=== PATIENT | male | born 1960 | race African-American/Black ===

== ENCOUNTER 2016-06-25 08:49 | Emergency (ER) | payer OTHER ==
[~2016-06-25] VITALS: Ht 167.6 cm; Wt 59.0 kg
[2016-06-25] MEDS ORDERED: [UNRECOGNIZED DRUG - REMARK] (09:12)
[2016-06-25] MEDS ORDERED: IBUP-1510 PO (09:12)
[2016-06-25] MEDS ORDERED: CYCL5TAB PO (09:12)
[2016-06-25] MEDS ORDERED: IBUPROFEN 600MG TABLET PO ONE (12:00)
[2016-06-25 12:23] LABS: HEMATOCRIT. 39.4 % (42.0-52.0); HEMOGLOBIN. 13.5 g/dL (14.0-18.0); MEAN CORPUSCULAR HEMOGLOBIN 34.2 pg (28.0-32.0); MEAN CORPUSCULAR HGB CONC 34.2 g/dL (31.0-37.0); MEAN CORPUSCULAR VOLUME 99.9 fL (80.0-94.0); MEAN PLATELET VOLUME 7.1 fl (7.4-10.4); PLATELET 233 x1000/uL (130-400); RED BLOOD CELL COUNT 3.94 mill/uL (4.7-6.1); RED CELL DISTRIBUTION WIDTH 12.6 % (11.6-14.6); WHITE BLOOD COUNT 22.2 x1000/uL (4.5-11.0)
[2016-06-25 12:27] LABS: DIFFERENTIAL COMMENT 1
[2016-06-25 12:29] LABS: ALBUMIN 3.3 g/dL (3.4-5.0); ANION GAP 11; CALCIUM 9.1 mg/dL (8.5-10.1); CARBON DIOXIDE 30 mEq/L (21-32); CHLORIDE 99 mEq/L (98-107); INDEX HEMOLYSI 1 (1-3); INDEX ICTERIC 1 (1-4); INDEX LIPEMIC 1 (1-3); UREA NITROGEN BLOOD 16 mg/dL (7-21)
[2016-06-25 12:33] LABS: ALANINE AMINOTRANSFERASE 20 IU/L (13-61); eGFR > 60 mL/min (>60)
[2016-06-25 12:44] LABS: CLARITY URINE CLOUDY (CLEAR); COLOR URINE ORANGE (YELLOW); GLUCOSE URINE NEGATIVE (NEGATIVE); KETONES URINE TRACE (NEGATIVE); LEUKOCYTE ESTERASE URINE 2+ (NEGATIVE); NITRITE URINE POSITIVE (NEGATIVE); OCCULT BLOOD URINE 3+ (NEGATIVE); PH URINE 5.5 (4.5-8.0); PROTEIN URINE 1+ (NEGATIVE); SPECIFIC GRAVITY URINE 1.027 (1.005-1.030)
[2016-06-25 13:06] LABS: SQUAMOUS EPITHELIAL CELL URINE FEW /lpf (RARE/1+); WBC URINE TNTC /hpf (0-2)
[2016-06-25 13:07] LABS: BACTERIA URINE 4+
[2016-06-25 13:12] LABS: PLATELET ESTIMATE NORMAL
[2016-06-25 13:36] VITALS: BP 103/64
[2016-06-28 04:08] LABS: CHLAMYDIA TRACHOMATIS NAA Negative (Negative); NEISSERIA GONORRHOEAE NAA Negative (Negative)
== END 2016-06-25 14:25 | disposition home or self-care (01) ==
LOC: ER 12:55
DX: N45.1 Epididymitis (principal); Z79.1 Long term (current) use of non-steroidal anti-inflammatories (NSAID); Z79.899 Other long term (current) drug therapy
CPT/HCPCS: 36415; 76870; 80053; 81001; 85025; 87491; 87591; 93976; 99285

== ENCOUNTER 2018-04-17 15:36 | Emergency (ER) | payer OTHER ==
[~2018-04-17] VITALS: Ht 167.6 cm; Wt 60.0 kg
[~2018-04-17 15:36] MED LIST: CYCL5TAB PO; IBUP-2030 PO; [UNRECOGNIZED DRUG - REMARK]
[2018-04-17] MEDS ORDERED: CYCLOBENZAPRINE 10MG TABLET PO ONE (19:00)
[2018-04-17 19:35] VITALS: BP 136/68
== END 2018-04-17 19:35 | disposition home or self-care (01) ==
LOC: ER 16:47
DX: M54.41 Lumbago with sciatica, right side (principal); F17.200 Nicotine dependence, unspecified, uncomplicated
CPT/HCPCS: 99283

== ENCOUNTER 2018-06-18 23:29 | Emergency (ER) | payer OTHER ==
[~2018-06-18] VITALS: Ht 175.3 cm; Wt 72.0 kg
[2018-06-19] MEDS ORDERED: HYDROCODONE/ACETAMINOPHEN 5/325MG TABLET PO ONE (02:45)
[2018-06-19 04:32] VITALS: BP 128/64
== END 2018-06-19 04:37 | disposition home or self-care (01) ==
LOC: ER 23:29
DX: M25.512 Pain in left shoulder (principal); V49.09XA Driver injured in collision with other motor vehicles in nontraffic accident, initial encounter; Y93.89 Activity, other specified; Y92.89 Other specified places as the place of occurrence of the external cause; Y99.8 Other external cause status
CPT/HCPCS: 71045; 73000; 93005; 99283

== ENCOUNTER 2019-08-24 17:03 | Inpatient (IN) | payer OTHER ==
[~2019-08-24] VITALS: Ht 165.1 cm; Wt 53.3 kg
[2019-08-24] MEDS ORDERED: ONDANSETRON HCL 4MG/2ML INJ IV STA (18:19)
[2019-08-24] MEDS ORDERED: MORPHINE SULFATE 4 MG/ML CPJ (NOT FOR IM USE) IV STA (18:19)
[2019-08-24] MEDS ORDERED: ACETAMINOPHEN 325MG TABLET PO STA (18:19)
[2019-08-24] MEDS ORDERED: VANCOMYCIN 1 G PREMIX 200 ML IV ONE (18:30)
[2019-08-24] MEDS ORDERED: CLINDAMYCIN 600 MG in DEXTROSE 5% WATER 50 ML IV ONE (18:30)
[2019-08-24] MEDS ORDERED: PIPERACILLIN/TAZ 3.375G PREMIX 50 ML IV ONE (18:30)
[2019-08-24] MEDS ORDERED: SODIUM CHLORIDE 0.9% 1000ML BAG (SEPSIS BOLUS) IV ONE (18:30)
[2019-08-24] MEDS ORDERED: CLINDAMYCIN 600MG PREMIX 50 ML IV NR (19:00)
[2019-08-24 19:09] LABS: BASOPHILS % 0.4 % (0.0-2.0); HEMATOCRIT. 40.4 % (42.0-52.0); HEMOGLOBIN. 14.3 g/dL (14.0-18.0); LYMPHOCYTES % 8.6 % (20.0-50.0); MEAN CORPUSCULAR HEMOGLOBIN 37.3 pg (28.0-32.0); MEAN CORPUSCULAR VOLUME 105.4 fL (80.0-94.0); MEAN PLATELET VOLUME 7.7 fl (7.4-10.4); MONOCYTES % 12.2 % (2.0-8.0); NEUTROPHILS % 78.8 % (40.0-76.0); PLATELET 182 x1000/uL (130-400); RED BLOOD CELL COUNT 3.83 mill/uL (4.7-6.1); RED CELL DISTRIBUTION WIDTH 12.8 % (11.6-14.6)
[2019-08-24 19:15] LABS: CHLORIDE 99 mEq/L (98-107)
[2019-08-24 19:17] LABS: PROTHROMBIN TIME 10.3 sec (9.6-11.0)
[2019-08-24 19:57] LABS: CLARITY URINE CLEAR (CLEAR); COLOR URINE ORANGE (YELLOW); KETONES URINE TRACE (NEGATIVE); LEUKOCYTE ESTERASE URINE 2+ (NEGATIVE); NITRITE URINE POSITIVE (NEGATIVE); OCCULT BLOOD URINE NEGATIVE (NEGATIVE); PROTEIN URINE 1+ (NEGATIVE); SPECIFIC GRAVITY URINE 1.026 (1.005-1.030)
[2019-08-24] MEDS ORDERED: DIPHENHYDRAMINE 50MG/ML VIAL IV PRN (20:30)
[2019-08-24] MEDS ORDERED: ACETAMINOPHEN 325MG TABLET PO PRN (20:30)
[2019-08-24] MEDS ORDERED: GUAIFENESIN 200MG/10ML SUGAR FREE UDC PO PRN (20:30)
[2019-08-24] MEDS ORDERED: ONDANSETRON HCL 4MG/2ML INJ IV PRN (20:30)
[2019-08-24] MEDS ORDERED: CLONIDINE 0.1MG TABLET PO PRN (20:30)
[2019-08-24] MEDS ORDERED: MORPHINE SULFATE 2 MG/ML CPJ (NOT FOR IM USE) IV PRN (20:30)
[2019-08-24] MEDS ORDERED: IPRATROPIUM/ALBUTEROL 0.5-3(2.5)MG/3ML NEB NEB PRN (20:30)
[2019-08-24] MEDS ORDERED: LORAZEPAM 2MG/ML CPJ IV PRN (20:30)
[2019-08-24] MEDS ORDERED: HYDROCODONE/ACETAMINOPHEN 5/325MG TABLET PO PRN (20:30)
[2019-08-24] MEDS ORDERED: NA PHOS,M-B/NA PHOS,DI-BA ENEMA 118ML PR PRN (20:30)
[2019-08-24] MEDS ORDERED: MAGNESIUM/ALUMINUM HYDROXIDE/SIMETHICONE 30ML UDC PO PRN (20:30)
[2019-08-24] MEDS ORDERED: DOCUSATE SODIUM 100MG CAPSULE PO PRN (20:30)
[2019-08-24] MEDS ORDERED: IOHEXOL-300 100 ML BOTTLE ONE (23:18)
[2019-08-24 23:41] LABS: CHLORIDE 105 mEq/L (98-107)
[2019-08-24] MEDS: SODIUM CHLORIDE 0.45% 1,000 ML IV SCH (23:53)
[2019-08-25] VITALS (8 sets, daily range): BP systolic 80–90; BP diastolic 45–57
[2019-08-25] MEDS: PIPERACILLIN/TAZOBACTAM 3.375 G in DEXT 5% WATER 100 ML IV SCH ×2 (03:23→08:22)
[2019-08-25 08:07] LABS: HEMATOCRIT. 34.2 % (42.0-52.0); MEAN CORPUSCULAR HEMOGLOBIN 37.3 pg (28.0-32.0); MEAN PLATELET VOLUME 8.1 fl (7.4-10.4); PLATELET 164 x1000/uL (130-400); RED BLOOD CELL COUNT 3.22 mill/uL (4.7-6.1); RED CELL DISTRIBUTION WIDTH 12.5 % (11.6-14.6)
[2019-08-25 08:18] LABS: CHLORIDE 104 mEq/L (98-107)
[2019-08-25 08:27] LABS: LDL CHOLESTEROL 50 mg/dL (5-100)
[2019-08-25 08:28] LABS: HDL CHOLESTEROL 47 mg/dL (40-59)
[2019-08-25 08:29] LABS: T4 FREE 1.13 ng/dL (0.76-1.46)
[2019-08-25] MEDS ORDERED: POTASSIUM CHLORIDE 20MEQ TABLET SR PO SCH (09:00)
[2019-08-25] MEDS ORDERED: VANCOMYCIN 750 MG PREMIX 150 ML IV SCH (09:00)
[2019-08-25] MEDS ORDERED: VANCOMYCIN 1 G PREMIX 200 ML IV SCH (09:30)
[2019-08-25] MEDS: SODIUM CHLORIDE 0.45% 1,000 ML IV SCH (10:00)
[2019-08-25 11:40] LABS: PLATELET ESTIMATE NORMAL
[2019-08-25] MEDS ORDERED: PIPERACILLIN/TAZOBACTAM 3.375 G in DEXT 5% WATER 100 ML IV SCH (14:00)
== END 2019-08-25 17:17 | disposition short-term general hospital (02) | DRG 720 ==
LOC: ER 17:03 → 5WST 19:57 → EDBEDREQ 20:03 → EDBEDREQSVC 20:03 → EDBEDREQTM 20:03 → ENRESERV 21:40
PROVIDERS: ADMIT Internal Medicine; ATTEND Internal Medicine
DX: A41.9 Sepsis, unspecified organism (principal); E46 Unspecified protein-calorie malnutrition; E86.0 Dehydration; N39.0 Urinary tract infection, site not specified; N40.0 Benign prostatic hyperplasia without lower urinary tract symptoms; N49.2 Inflammatory disorders of scrotum; N50.89 Other specified disorders of the male genital organs; M19.90 Unspecified osteoarthritis, unspecified site; Z68.1 Body mass index [BMI] 19.9 or less, adult; Z79.899 Other long term (current) drug therapy
CPT/HCPCS: 36415; 71045; 74177; 80048; 80053; 80061; 81003; 83605; 84439; 84443; 84484; 85025; 86850; 86900; 93005; 99285; J2270; J2405; J2543; J3370; J3490; J7030; J7060; Q9967